=== PATIENT | female | born 1995 | race American Indian/Alaskan Native ===

== ENCOUNTER 2019-08-27 19:51 | Emergency (ER) | payer SELFPAY ==
[2019-08-27 19:55] VITALS: BP 124/77
--- NOTE | 2019-08-27 21:38 | Emergency Department Report ---
ED ENT HPI - General Chief complaint: Dental/Oral Stated complaint: TOOTH PAIN/SWELLING Time Seen by Provider: 08/27/19 21:33 Source: patient Mode of arrival: Ambulatory Limitations: No Limitations - History of Present Illness Initial comments: pt is a 23 yo female who presents to the ED with c/o left upper dental pain that began 2 days ago. she states when she woke up yesterday she began having swelling. she denies any fever, n/v/d. she states that she last saw a dentist 4- 5 years ago. PMHx none. no allergies to meds. She is tolerating p.o. intake and her secretions without difficulty. - Related Data Previous Rx's Medication Instructions Recorded Last Taken Type Ibuprofen [Motrin 600 MG tab] 600 mg PO Q8H PRN #20 tablet 08/27/19 Unknown Rx Penicillin Vk [Veetids TAB] 500 mg PO QID 7 Days #56 tablet 08/27/19 Unknown Rx ED Dental HPI - General Chief complaint: Dental/Oral Stated complaint: TOOTH PAIN/SWELLING Time Seen by Provider: 08/27/19 21:33 Source: patient Mode of arrival: Ambulatory Limitations: No Limitations - Related Data Previous Rx's Medication Instructions Recorded Last Taken Type Ibuprofen [Motrin 600 MG tab] 600 mg PO Q8H PRN #20 tablet 08/27/19 Unknown Rx Penicillin Vk [Veetids TAB] 500 mg PO QID 7 Days #56 tablet 08/27/19 Unknown Rx ED Review of Systems ROS: Stated complaint: TOOTH PAIN/SWELLING Other details as noted in HPI Comment: All other systems reviewed and negative ED Past Medical Hx - Past Medical History Previous Medical History?: No - Surgical History Past Surgical History?: No - Social History Smoking Status: Current Some Day Smoker Substance Use Type: Alcohol - Medications Home Medications: Home Medications Medication Instructions Recorded Confirmed Last Taken Type Ibuprofen [Motrin 600 MG tab] 600 mg PO Q8H PRN #20 tablet 08/27/19 Unknown Rx Penicillin Vk [Veetids TAB] 500 mg PO QID 7 Days #56 tablet 08/27/19 Unknown Rx ED Physical Exam - General Limitations: No Limitations General appearance: alert, in no apparent distress - Head Head exam: Present: atraumatic, normocephalic - Eye Eye exam: Present: normal appearance - ENT ENT exam: Present: mucous membranes moist, other (multiple dental caries present, there is induration present to the left, upper gumline near the back molars, there is small edema present to the right upper face, no tongue elevation, no trismus, no muffled voice, uvula is midline, no uvular edema or deviation) - Respiratory Respiratory exam: Present: normal lung sounds bilaterally. Absent: respiratory distress, wheezes, rales, rhonchi, stridor, chest wall tenderness, accessory muscle use, decreased breath sounds, prolonged expiratory - Cardiovascular Cardiovascular Exam: Present: regular rate, normal rhythm, normal heart sounds. Absent: systolic murmur, diastolic murmur, rubs, gallop - Neurological Exam Neurological exam: Present: alert, oriented X3 - Psychiatric Psychiatric exam: Present: normal affect, normal mood - Skin Skin exam: Present: warm, dry, intact ED Course Vital Signs 08/27/19 08/27/19 19:53 21:47 Temperature 98.1 F Pulse Rate 112 H 92 H Respiratory 18 Rate Blood Pressure 124/77 O2 Sat by Pulse 98 100 Oximetry ED Medical Decision Making - Lab Data Vital Signs 08/27/19 08/27/19 19:53 21:47 Temperature 98.1 F Pulse Rate 112 H 92 H Respiratory 18 Rate Blood Pressure 124/77 O2 Sat by Pulse 98 100 Oximetry - Medical Decision Making pt is a 23 yo female who presents to the ED with c/o left upper dental pain that began 2 days ago. she states when she woke up yesterday she began having swelling. she denies any fever, n/v/d. she states that she last saw a dentist 4- 5 years ago. PMHx none. no allergies to meds. She is tolerating p.o. intake and her secretions without difficulty. Vitals with tachycardia which improved to no rmal upon repeat. On exam:multiple dental caries present, there is induration present to the left, upper gumline near the back molars, there is small edema present to the right upper face, no tongue elevation, no trismus, no muffled voice, uvula is midline, no uvular edema or deviation. Examination consistent with dental abscess. Patient given prescription for penicillin VK and ibuprofen. Advised patient please take medication as prescribed. please follow up with a dentist. it is very important that you follow up. return to the emergency room for any new or worsening symptoms. - Differential Diagnosis Dental abscess, dental caries, Ludwigs, facial abscess, peritonsillar absce Critical care attestation.: If time is entered above; I have spent that time in minutes in the direct care of this critically ill patient, excluding procedure time. ED Disposition Clinical Impression: Dental abscess, Dental caries Disposition: TO HOME OR SELFCARE Is pt being admited?: No Does the pt Need Aspirin: No Condition: Stable Instructions: Dental Abscess (ED), Dental Caries (ED) Additional Instructions: please take medication as prescribed. please follow up with a dentist. it is very important that you follow up. return to the emergency room for any new or worsening symptoms. Prescriptions: Ibuprofen [Motrin 600 MG tab] 600 mg PO Q8H PRN #20 tablet PRN Reason: Pain Penicillin Vk [Veetids TAB] 500 mg PO QID 7 Days #56 tablet Referrals: [facility] [Outside] - 3-5 Days [facility] [Outside] - 3-5 Days Time of Disposition: 21:39 Print Language: SLOVENIAN
== END 2019-08-27 21:47 | disposition home or self-care (01) ==
LOC: ED 19:51
DX: K02.9 Dental caries, unspecified (principal); K04.7 Periapical abscess without sinus
CPT/HCPCS: 99281